=== PATIENT | male | born 1955 | race Caucasian/White ===

== ENCOUNTER 2016-05-17 06:54 | Day surgery (SDC) | payer OTHER ==
[2016-05-14 11:38] VITALS: BMI 28.8
[~2016-05-17 06:54] MED LIST: LIDOCAINE 1%/EPI 1:100000 (50 ML MULTI DOSE VIAL) INF ONE; TOBRA 0.3%/DEXAMETH 0.1% OPHTHALMIC SUSP 2.5 ML BTL TP ONE
[2016-05-17] MEDS ORDERED: TOBRA 0.3%/DEXAMETH 0.1% OPHTHALMIC SUSP 2.5 ML BTL ONE (08:15)
[2016-05-17] MEDS ORDERED: TETRACAINE 0.5% OPHTH SOLN 2 ML BOTTLE ONE (08:15)
[2016-05-17] MEDS ORDERED: LIDOCAINE 1%/EPI 1:100000 (50 ML MULTI DOSE VIAL) ONE (08:18)
[2016-05-17] MEDS: FLURBIPROFEN 0.03% OPHTH SOLN 2.5 ML BOTTLE ONE ×3 (08:20→08:33)
[2016-05-17] MEDS ORDERED: LIDOCAINE 1%/EPI 1:100000 (50 ML MULTI DOSE VIAL) INF ONE (10:11)
[2016-05-17] MEDS ORDERED: TOBRA 0.3%/DEXAMETH 0.1% OPHTHALMIC SUSP 2.5 ML BTL TP ONE (10:35)
[2016-05-17] MEDS ORDERED: PROPOFOL 20 ML ONE (10:37)
[2016-05-17] MEDS ORDERED: MIDAZOLAM HCL 2 MG/2 ML SINGLE DOSE VIAL ONE (10:37)
[2016-05-17 13:13] VITALS: BP 130/80; PULSE 92; TEMP 97.8
--- NOTE | 2016-05-17 19:33 | OP ---
DATE OF OPERATION: 05/17/2016 SURGEON: Divya Cheung M.D. 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 ANESTHESIA: Local. PROCEDURE: Patient was brought to the operating room, and the left eye was prepped and draped in the usual sterile fashion for ophthalmic surgery after placing tetracaine eyedrops. The microscope was swung into position, and was placed, and the head of the pterygium was found to be too with the foreign body eyelash in the body of the pterygium. The area of the pterygium was marked and with a marker, and the 2 heads were carefully excised using the crescent blade and the ahmet bur was used to smooth the surface of the cornea. The belly of the pterygium was then excised with the Rommel scissors, and specimen was sent for histopathology. The bed of the sclera was then cauterized and hemostasis was achieved, and 3 mm x 3 mm Amniograft was then placed on the bed sclera using the Buck glue. Graft was found to be intact after 60 minutes and Tobradex eyedrops were then placed on the cornea, and the conjunctival sac, and the eye was patched. The patient was then transferred to the recovery room in a stable condition having tolerated the procedure well. DIVYA CHEUNG M.D. [id number]
--- NOTE | 2016-05-18 11:31 | PATH ---
Surgical Pathology Report Patient Name: QIANA MANZO [facility]. Rec. #: [id number] /Age/Gender: 1955 (Age: 60) / M Account: [id number] Location: [facility] SURGICAL Taken: 05/17/2016 Received: 05/17/2016 Reported: 05/18/2016 Physicians: Chanda Villar M.D. Specimen(s) Received PTERYGIUM Clinical History Pterygium left eye Final Diagnosis CONJUNCTIVA, LEFT EYE, EXCISION: CONJUNCTIVA WITH DEGENERATIVE CHANGES CONSISTENT WITH PTERYGIUM, WITH ASSOCIATED CHRONIC INFLAMMATION AND REACTIVE LYMPHOID AGGREGATES. Electronically Signed Chuck Ambrocio M.D. Gross Description Received in formalin, labeled "pterygium left eye" is a romero, irregular portion of soft tissue measuring 1.2 cm. in greatest dimension. The specimen is submitted in toto in one cassette. 05/17/201605/17/2016
== END 2016-05-17 12:30 | disposition home or self-care (01) ==
LOC: JASU-SURG 06:54
PROVIDERS: ATTEND Ophthalmology
PROC: 08B Eye, Excision (ICD-10-PCS; principal; 2016-05-17 09:00)
DX: H11.002 Unspecified pterygium of left eye (principal)
CPT/HCPCS: 88304-TC

== ENCOUNTER 2016-06-14 07:22 | Day surgery (SDC) | payer OTHER ==
[2016-06-11 15:00] VITALS: BMI 28.8
[2016-06-14] MEDS ORDERED: LIDOCAINE 1%/EPI 1:100000 (50 ML MULTI DOSE VIAL) ONE (07:25)
[2016-06-14 07:48] VITALS: TEMP 97.5
[2016-06-14] MEDS ORDERED: MIDAZOLAM HCL 2 MG/2 ML SINGLE DOSE VIAL ONE (11:13)
[2016-06-14] MEDS ORDERED: TETRACAINE 0.5% OPHTH SOLN 2 ML BOTTLE OD ONE (11:20)
[2016-06-14] MEDS ORDERED: POVIDONE-IODINE 5% OPHTHALMIC PREP 30 ML SOLUTION OD ONE (11:45)
[2016-06-14] MEDS ORDERED: LIDOCAINE 1%/EPI 1:100000 (20 ML MULTI DOSE VIAL) INF ONE (11:53)
[2016-06-14] MEDS ORDERED: BSS (NA/CA/MG/K) BALANCED SALT SOLUTION OPHTH SOLN 15 ML BOTTLE OD ONE (11:53)
[2016-06-14] MEDS ORDERED: TOBRAMYCIN/DEXAMETHASONE OPHTH. OINTMENT 1 TUBE OD ONE (12:23)
[2016-06-14 13:44] VITALS: BP 126/66; PULSE 72
--- NOTE | 2016-06-14 20:11 | OP ---
DATE OF OPERATION: SURGEON: Divya Cheung M.D. PREOPERATIVE DIAGNOSIS: Pterygium right eye. POSTOPERATIVE DIAGNOSIS: Pterygium right eye. PROCEDURE: Excision of pterygium right eye with Amniograft using Tisseel glue. DESCRIPTION: Patient was brought to the operating room, and the right eye was prepped and draped in the usual sterile fashion for ophthalmic surgery. The microscope was swung into position, and head of the pterygium with the body was marked using the conjunctival marker. The lidocaine with epinephrine was injected into the belly of the pterygium. The head was carefully excised using the crescent blade from the corneal surface. 3 heads were noted intermingled with each other, all were dissected carefully, and the belly of the conjunctivae was excised using the Rommel scissors. Specimen was sent for histopathology. Hemostasis was achieved on conjunctival surface while the corneal head surface was smoothened using the ahmet bur. Handheld cautery was also used to perform hemostasis, and a 5 mm x 5 mm Amniograft was carefully placed was placed, and the head of the pterygium was found to be too with the foreign body eyelash in the body of the pterygium. The area of the pterygium was marked and with a marker, and the 2 heads were carefully excised using the crescent blade and the ahmet bur was used to smooth the surface of the cornea. The belly of the pterygium was then excised with the Rommel scissors, and specimen was sent for histopathology. The bed of the sclera was then cauterized and hemostasis was achieved, and 3 mm x 3 mm Amniograft was then placed on the bed sclera with the Buck glue, which was then found to be well placed. Tobradex ointment was placed on the conjunctival sac, and the eye was patched and shielded. The patient was then transferred to the recovery room in a stable condition having tolerated the procedure well. DIVYA CHEUNG M.D. /[id number]
--- NOTE | 2016-06-15 12:35 | PATH ---
Surgical Pathology Report Patient Name: QIANA MANZO Med. Rec. #: [id number] /Age/Gender: 1955 (Age: 61) / M Account: [id number] Location: [facility] [place] SUR[facility]ICAL Taken: 06/14/2016 Received: 06/14/2016 Reported: 06/15/2016 Physicians: Chanda Villar M.D. Specimen(s) Received PTERYGIUM RIGHT EYE Clinical History Pterygium right eye Final Diagnosis CONJUNCTIVA, RIGHT EYE, EXCISION: CONJUNCTIVA WITH DEGENERATIVE CHANGES CONSISTENT WITH PTERYGIUM. Comment: Also see [id number]. Electronically Signed Chuck Ambrocio M.D. Gross Description Received in formalin labeled "pterygium right eye," are 2 romero-brown soft tissue fragments measuring 0.1 and 0.8 cm in greatest dimension. The specimens are submitted in toto in one cassette. /06/14/201606/14/2016
== END 2016-06-14 13:54 | disposition home or self-care (01) ==
LOC: JASU-SURG 07:22
PROVIDERS: ATTEND Ophthalmology
PROC: 08R Eye, Replacement (ICD-10-PCS; principal; 2016-06-14 09:00)
DX: H11.001 Unspecified pterygium of right eye (principal)
CPT/HCPCS: 88304-TC

== ENCOUNTER 2024-11-12 12:22 | Emergency (ER) | payer OTHER ==
[2024-11-12 12:41] VITALS: BP 130/85; PULSE 61; RESP 17; TEMP 98.5; BMI 25.8
[2024-11-12] MEDS ORDERED: ACETAMINOPHEN 325 MG TABLET (FP) ONE (14:16)
[2024-11-12] MEDS ORDERED: IBUPROFEN 400 MG TABLET (FP) PO ONE (14:17)
[2024-11-12] MEDS: IBUPROFEN 400 MG TABLET (FP) PO ONE (14:21)
[2024-11-12] MEDS: ACETAMINOPHEN 325 MG TABLET (FP) PO ONE (14:21)
[2024-11-12] MEDS: METHOCARBAMOL 750 MG TAB PO ONE (14:34)
[2024-11-12] MEDS ORDERED: METHOCARBAMOL 500 MG TABLET ONE (14:38)
[2024-11-12] MEDS: METHOCARBAMOL 500 MG TABLET PO ONE (14:41)
== END 2024-11-12 16:48 | disposition home or self-care (01) ==
LOC: JER 12:22
DX: M25.551 Pain in right hip (principal); G89.29 Other chronic pain
CPT/HCPCS: 72170-TC-FY; 73521-TC-FY; 99284-25